=== PATIENT | female | born 1955 | race Caucasian/White ===

== ENCOUNTER 2017-01-26 10:30 | Outpatient (CLI) | payer OTHER ==
--- NOTE | 2017-01-26 12:08 | MMO ---
BILATERAL DIGITAL SCREENING MAMMOGRAMS: HISTORY: A 61-year-old female presents for digital screening mammography. COMPARISON: 05/30/2013, 06/15/2011, 09/26/2009 FINDINGS: This patient's mammogram is interpreted with the assistance of computer aided detection. Scattered areas of fibroglandular density are noted bilaterally. There are multiple stable, circumscr ibed masses in both breasts, which are benign. Minimal scar in the upper aspect of the left breast, which is stable. No direct or indirect evidence of malignancy. IMPRESSION: BI-RADS Category 2: Benign findings. Continue routine screening. POS: MED
== END 2017-01-26 10:31 | disposition home or self-care (01) ==
LOC: MAMMO 10:30
PROVIDERS: ATTEND Internal Medicine
DX: Z12.31 Encounter for screening mammogram for malignant neoplasm of breast (principal)
CPT/HCPCS: 77067; G0202

== ENCOUNTER 2018-04-18 13:18 | Outpatient (CLI) | payer OTHER | END 2018-04-18 13:19 | disposition home or self-care (01) | LOC: BICMAMMO 13:18 | PROVIDERS: ATTEND Internal Medicine | DX: Z12.31 Encounter for screening mammogram for malignant neoplasm of breast (principal); N63.10 Unspecified lump in the right breast, unspecified quadrant; N63.20 Unspecified lump in the left breast, unspecified quadrant | CPT/HCPCS: 77063; 77067 ==

== ENCOUNTER 2018-05-10 10:25 | Outpatient (CLI) | payer OTHER ==
[2018-05-10] MEDS ORDERED: Gadobenate Dimeglumine 529 MG/1 ML (20ML VIAL) ONE (10:26)
--- NOTE | 2018-05-10 13:54 | MRI ---
MRI BRAIN WITH AND WITHOUT IV CONTRAST: Date: 05/10/18 HISTORY: Intractable chronic migraine without aura and without status migrainosus. COMPARISON: 06/24/10. FINDINGS: Nonspecific hyperintense foci in the subcortical white matter and, to a lesser extent, periventricula r white matter, are again seen, without associated enhancement or restricted diffusion. The sagittal Flair images show a focus in the corpus callosum. Correlation for multiple sclerosis would be helpful . No evidence of infarct, hemorrhage, mass, midline shift, or abnormal extra-axial fluid collections ar e noted. The ventricular size is normal and the basilar cisterns are patent. No abnormal postcontrast enhancement is seen. The visualized paranasal sinuses and mastoid air cells are well aerated. IMPRESSION: 1. No evidence of acute intracranial process or mass. 2. Nonspecific white matter changes without active demyelination. POS: OFF
== END 2018-05-10 10:26 | disposition home or self-care (01) ==
LOC: BICMRI 10:25
DX: G43.719 Chronic migraine without aura, intractable, without status migrainosus (principal); R42 Dizziness and giddiness; R26.89 Other abnormalities of gait and mobility; R90.89 Other abnormal findings on diagnostic imaging of central nervous system
CPT/HCPCS: 70553; 82565; A9577

== ENCOUNTER 2018-06-19 06:45 | Emergency (ER) | payer OTHER ==
[2018-06-19 07:28] LABS: #Lymphocytes 0.7 thou/uL (1.20-3.40); #Monocytes 0.5 thou/uL (0.11-0.59); #Neutrophils 4.2 thou/uL (1.40-6.50); %Basophils 0.3 % (0.0-1.0); %Eosinophils 0.1 % (0.0-10.0); %Lymphocytes 12.5 % (21.0-51.0); %Monocytes 9.4 % (0.0-10.0); %Neutrophils 77.8 % (42.0-75.0); Hemoglobin 13.7 g/dL (12.0-16.0); Mean Corpuscular Hemoglobin 28.5 pg (27.0-31.0); Mean Corpuscular Volume 86.3 fL (78.0-98.0); Mean Platelet Volume 8.6 fL (7.4-10.4); Platelet Count 161 thou/uL (130-400); RBC Distribution Width 13.1 % (11.5-14.5); Red Blood Cell (RBC) Count 4.81 mill/uL (4.20-5.40); White Blood Cell (WBC) Count 5.4 thou/uL (4.8-10.8)
[2018-06-19 07:41] LABS: ALT (SGPT) 25 U/L (8-55); AST (SGOT) 29 U/L (5-34); Alkaline Phosphatase 111 U/L (40-150); Anion Gap 15 mmol/L (10-20); BUN (Urea Nitrogen) 19 mg/dL (9.8-20.1); Bilirubin, Total 0.4 mg/dL (0.2-1.2); Calc. Creatinine Clearance 0 mL/min (70-130); Calcium 9.2 mg/dL (7.8-10.44); Carbon Dioxide 24 mmol/L (23-31); Chloride 105 mmol/L (98-107); Estimated GFR-MDRD 49; Globulin 2.9 g/dL (2.4-3.5); Glucose 113 mg/dL (80-115); Lipase 24 U/L (8-78); Protein, Total 6.9 g/dL (6.0-8.3); Sodium 141 mmol/L (136-145)
[2018-06-19] MEDS ORDERED: Ondansetron PF 4 MG/2 ML Vial ONE (08:11)
--- NOTE | 2018-06-19 08:59 | CT ---
CT ABDOMEN AND PELVIS WITH IV CONTRAST: Date: 06/19/18 HISTORY: 62-year-old female with nausea, vomiting, and abdominal pain. COMPARISON: 12/08/12. FINDINGS: There is patchy consolidation in the left lower lobe. The liver, spleen, pancreas, adrenal glands, and left kidney are normal. There is a tiny, nonobstructing calculus in the right kidney. No free air, free fluid, or lymphadenopathy seen in the abdomen or pelvis. There is no aneurysmal dil atation of the abdominal aorta. The patient is post hysterectomy. The small bowel loops are not abnor emiliano dilated. There are mild degenerative changes in the spine. IMPRESSION: 1. Left basilar patchy lung consolidation, suspicious for pneumonia. 2. Tiny, nonobstructing right renal calculus. POS: TPC
[2018-06-19] MEDS ORDERED: ISOVUE-370 76%-LOCM 1 ML ONE (09:37)
[2018-06-19 10:13] LABS: Bilirubin Negative (Negative); Blood, Urine Trace (Negative); Clarity CLEAR (Clear); Glucose, Urine (Dipstick) Negative (Negative); Leukocyte Negative (Negative); Nitrite Negative (Negative); Protein, Urine (Dipstick) Negative (Neg-Trace); Urobilinogen 0.2 mg/dL (0.2-1.0); pH, Urine 5.5 (5.0-9.0)
[2018-06-19 10:16] LABS: Bacteria/HPF None Seen HPF (None Seen); Pathc Cast-AUWi Flag 2.44 (0-2.49); RBC/HPF 0-3 HPF (0-3); Squamous Epithelial 0-3 HPF (0-3); WBC/HPF 0-3 HPF (0-3)
[2018-06-19 10:20] LABS: Hyaline Casts/LPF 0-3 HYALINE CAST LPF (0-3 Hyaline); Specific Gravity, Urine Greater than 1.060 (1.002-1.036)
== END 2018-06-19 10:44 | disposition home or self-care (01) ==
LOC: ERS 06:45
DX: R11.10 Vomiting, unspecified (principal); R19.7 Diarrhea, unspecified; J18.9 Pneumonia, unspecified organism; E11.9 Type 2 diabetes mellitus without complications; E78.5 Hyperlipidemia, unspecified; I10 Essential (primary) hypertension; F41.9 Anxiety disorder, unspecified; Z87.891 Personal history of nicotine dependence; Z79.899 Other long term (current) drug therapy
CPT/HCPCS: 36415; 74177; 80053; 81003; 81015; 83690; 85025; 93005; 96361; 96374; J2405; Q9966

== ENCOUNTER 2019-04-25 12:15 | Outpatient (CLI) | payer OTHER ==
--- NOTE | 2019-04-25 12:53 | MMO ---
Bilateral MAMMO Bilat Screen [facility]. CLINICAL HISTORY: Patient is 63 years old and is seen for screening. The patient has no family history of breast cancer. The patient has no personal history of cancer. VIEWS: The views performed were: bilateral craniocaudal with tomosynthesis; bilateral mediolateral oblique with tomosynthesis; and right exaggerated craniocaudal. FILMS COMPARED: The present examination has been compared to prior imaging studies performed at [facility] on 05/30/2013, 05/31/2013, 01/26/2017 and 04/18/2018. This study has been interpreted with the assistance of computer-aided detection. MAMMOGRAM FINDINGS: There are scattered fibroglandular densities. Nodularity is stable. There are no suspicious masses, suspicious calcifications, or new areas of architectural distortion. IMPRESSION: THERE IS NO MAMMOGRAPHIC EVIDENCE OF MALIGNANCY. A ROUTINE FOLLOW-UP MAMMOGRAM IN 1 YEAR IS RECOMMENDED. THE RESULTS OF THIS EXAM WERE SENT TO THE PATIENT. ACR BI-RADS Category 2 - Benign finding MAMMOGRAPHY NOTE: 1. A negative mammogram report should not delay a biopsy if a dominant of clinically suspicious mass is present. 2. Approximately 10% to 15% of breast cancers are not detected by mammography. 3. Adenosis and dense breasts may obscure an underlying neoplasm. Reported by: LENIN ROPER MD Electonically Signed: [id number]
== END 2019-04-25 12:16 | disposition home or self-care (01) ==
LOC: BICMAMMO 12:15
PROVIDERS: ATTEND Internal Medicine
DX: Z12.31 Encounter for screening mammogram for malignant neoplasm of breast (principal)
CPT/HCPCS: 77063; 77067

== ENCOUNTER 2019-08-23 12:16 | Outpatient (CLI) | payer OTHER ==
--- NOTE | 2019-08-23 13:39 | MRI ---
MRI RIGHT KNEE: Date: 08/23/2019 PROVIDED CLINICAL HISTORY: Right knee pain. FINDINGS: The anterior cruciate ligament, posterior cruciate ligament, medial collateral ligament, and lateral collateral ligamentous complex demonstrate an intact MR appearance, as does the extensor mechanism. The medial and lateral menisci demonstrate no evidence for tear. No focal articular cartilage defect is apparent. There is articular cartilage signal inhomogeneity an d surface irregularity involving the patella without evidence for full thickness fissure or focal def ect. There is a small knee joint effusion. No focal concerning regional marrow or muscular signal abnormality is apparent. IMPRESSION: 1. Patellar chondrosis. 2. Small knee joint effusion. POS: NAHUM
== END 2019-08-23 12:17 | disposition home or self-care (01) ==
LOC: BICMRI 12:16
PROVIDERS: ATTEND Internal Medicine
DX: M25.561 Pain in right knee (principal); M25.461 Effusion, right knee

== ENCOUNTER 2019-11-01 13:17 | Outpatient (CLI) | payer OTHER ==
--- NOTE | 2019-11-01 14:55 | MRI ---
MRI BRAIN WITH AND WITHOUT CONTRAST: DATE: 11/01/2019 HISTORY: 64-year-old female with frequent falls R 26.6 COMPARISON: 05/10/2018 TECHNIQUE: Multiplanar, multisequence MRI of the brain obtained pre and post IV injection of gadolinium based co ntrast agent. FINDINGS: There is no obstructive hydrocephalus. There is no midline shift or any other evidence of mass effect . There is no extra-axial fluid collection. There is a moderate degree of T2-hyperintensities in the cerebral white matter consistent with chronic ischemic white matter changes due to microvascular atherosclerosis. There are FLAIR and T2 hyperintense signal abnormalities homogeneously symmetrically involving the bilateral caudate nuclei, which is unchanged since 05/10/2018. This finding was also present on an older MRI of 06/24/2010, but appears slightly worse now. Etiology is uncertain. There are patchy signal abnormalities involving the brainstem, especially the jarad. This m ay be part of the chronic ischemic white matter changes, although this is nonspecific. This has not significantly changed since 05/10/2018. There is no abnormal enhancement, mass, recent hemorrhage, or r estricted diffusion. IMPRESSION: 1) moderate chronic ischemic white matter changes. 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 3) no acute findings. No interval change overall since 05/10/2018.
== END 2019-11-01 13:18 | disposition home or self-care (01) ==
LOC: BICMRI 13:17
PROVIDERS: ATTEND Student in an Organized Health Care Education/Training Program
DX: R29.6 Repeated falls (principal); I67.82 Cerebral ischemia; R90.89 Other abnormal findings on diagnostic imaging of central nervous system
CPT/HCPCS: 70553; 82565

== ENCOUNTER 2021-08-21 14:22 | Emergency (ER) | payer BC, OTHER ==
[2021-08-21 14:51] LABS: #Eosinphils 0.2 thou/uL (0.0-0.7); #Lymphocytes 1.5 thou/uL (1.20-3.40); #Monocytes 0.5 thou/uL (0.11-0.59); #Neutrophils 3.2 thou/uL (1.40-6.50); %Basophils 0.6 % (0.0-1.0); %Eosinophils 3.4 % (0.0-10.0); %Lymphocytes 27.2 % (21.0-51.0); %Monocytes 8.5 % (0.0-10.0); %Neutrophils 60.2 % (42.0-75.0); Mean Corpuscular HGB CONC 32.3 g/dL (32.0-36.0); Mean Corpuscular Hemoglobin 29.3 pg (27.0-31.0); Mean Corpuscular Volume 90.7 fL (78.0-98.0); Mean Platelet Volume 8.6 fL (7.4-10.4); Platelet Count 187 thou/uL (130-400); RBC Distribution Width 11.8 % (11.5-14.5); Red Blood Cell (RBC) Count 5.12 mill/uL (4.20-5.40); White Blood Cell (WBC) Count 5.3 thou/uL (4.8-10.8)
[2021-08-21] MEDS ORDERED: Metoclopramide HCl 10 MG/2 ML VIAL ONE (15:00)
[2021-08-21] MEDS ORDERED: Dexamethasone 10 MG/ML VIAL ONE (15:00)
[2021-08-21] MEDS ORDERED: Ketorolac Tromethamine 30 MG/ML VIAL ONE (15:00)
[2021-08-21 15:32] LABS: ALT (SGPT) 29 U/L (8-55); AST (SGOT) 31 U/L (5-34); Albumin 4.5 g/dL (3.4-4.8); Alkaline Phosphatase 87 U/L (40-110); Anion Gap 15 mmol/L (10-20); BUN (Urea Nitrogen) 10 mg/dL (9.8-20.1); Bilirubin, Total 0.5 mg/dL (0.2-1.2); CK (CPK) 57 U/L (29-168); Calc. Creatinine Clearance 0 mL/min (70-130); Calcium 10.1 mg/dL (7.8-10.44); Carbon Dioxide 25 mmol/L (23-31); Chloride 107 mmol/L (98-107); Globulin 3.5 g/dL (2.4-3.5); Glucose 94 mg/dL (80-115); Lipase 40 U/L (8-78); Potassium 4.2 mmol/L (3.5-5.1); Sodium 143 mmol/L (136-145)
== END 2021-08-21 16:28 | disposition home or self-care (01) ==
LOC: ERS 14:22
DX: M79.10 Myalgia, unspecified site (principal); R51.9 Headache, unspecified; Z20.822 Contact with and (suspected) exposure to COVID-19; E11.9 Type 2 diabetes mellitus without complications; E78.5 Hyperlipidemia, unspecified; I10 Essential (primary) hypertension; Z87.891 Personal history of nicotine dependence
CPT/HCPCS: 71045; 80053; 82550; 83690; 84484; 85025; 93005; 96374; 96375; J1100; J1885; J2765; U0003; U0005

== ENCOUNTER 2022-12-15 17:00 | Outpatient (CLI) | payer MEDICARE | END 2022-12-15 17:01 | disposition home or self-care (01) | LOC: SLEEPLAB 17:00 | PROVIDERS: ATTEND Family Medicine | DX: G47.33 Obstructive sleep apnea (adult) (pediatric) (principal); G47.61 Periodic limb movement disorder; G47.00 Insomnia, unspecified; I10 Essential (primary) hypertension; F41.8 Other specified anxiety disorders; R40.0 Somnolence; R51.9 Headache, unspecified; R06.83 Snoring; R35.1 Nocturia | CPT/HCPCS: 95810 ==

== ENCOUNTER 2023-01-05 14:07 | Outpatient (CLI) | payer MEDICARE ==
[2023-01-05 14:58] LABS: Hemoglobin 12.6 g/dL (12.0-15.5); Mean Corpuscular HGB CONC 33.2 g/dL (32.0-36.0); Mean Corpuscular Hemoglobin 28.9 pg (27.0-33.0); Mean Corpuscular Volume 87.2 fl (81.6-98.3); Mean Platelet Volume 10.2 fl (7.4-10.4); Platelet Count 203 10x3/uL (150-450); RBC Distribution Width 13.8 % (11.5-14.5); Red Blood Cell (RBC) Count 4.36 10x6/uL (3.90-5.03); White Blood Cell (WBC) Count 5.4 10x3/uL (3.5-10.5)
[2023-01-05 15:18] LABS: Anion Gap 12 mmol/L (10-20); BUN (Urea Nitrogen) 12 mg/dL (9.8-20.1); Calc. Creatinine Clearance 0 mL/min (70-130); Carbon Dioxide 27 mmol/L (23-31); Chloride 104 mmol/L (98-107); Estimated GFR 81; Glucose 133 mg/dL (80-115); Potassium 3.3 mmol/L (3.5-5.1); Sodium 140 mmol/L (136-145)
== END 2023-01-05 14:08 | disposition home or self-care (01) ==
LOC: LABBT 14:07
PROVIDERS: ATTEND Specialist
DX: Z01.818 Encounter for other preprocedural examination (principal); J34.2 Deviated nasal septum; J34.3 Hypertrophy of nasal turbinates; J32.0 Chronic maxillary sinusitis
CPT/HCPCS: 80048; 85027; 93005; 93010

== ENCOUNTER 2023-01-06 09:40 | Day surgery (SDC) | payer MEDICARE ==
[2023-01-05 14:33] VITALS: BMI 26.9
[2023-01-06] MEDS ORDERED: Oxymetazoline HCl 0.05% (30 ML BOT) ONE ×2 (10:50→11:29)
[2023-01-06] MEDS ORDERED: Lidocaine 1% (PF) 30 ML VIAL ONE (11:30)
[2023-01-06] MEDS ORDERED: fentaNYL PF 100 MCG/2 ML SYRINGE ONE (11:40)
[2023-01-06] MEDS ORDERED: Glycopyrrolate 0.2 MG/ML 5 ML SYRINGE ONE (11:46)
[2023-01-06] MEDS ORDERED: Lidocaine 1% PF 5 ML VIAL ONE (11:46)
[2023-01-06] MEDS ORDERED: Dexamethasone 20 MG/5 ML VIAL ONE (11:46)
[2023-01-06] MEDS ORDERED: NEOSTIGMINE 3 MG/3 ML SYR 3 MG/3 ML SYRINGE ONE (11:46)
[2023-01-06] MEDS ORDERED: Rocuronium Bromide 10 MG/ML (10ML VIAL) ONE (11:46)
[2023-01-06] MEDS ORDERED: Ondansetron PF 4 MG/2 ML Vial ONE (11:46)
[2023-01-06] MEDS ORDERED: PROPOFOL 200 MG/20 ML VIAL ONE (11:46)
[2023-01-06] MEDS ORDERED: ePHEDrine Sulfate 50 MG/10 ML VIAL ONE (11:46)
== END 2023-01-06 14:25 | disposition home or self-care (01) ==
LOC: SDC 09:40
PROVIDERS: ATTEND Specialist
PROC: 09TL8ZZ Resection of Nasal Turbinate, Via Natural or Artificial Opening Endoscopic (ICD-10-PCS; principal; 2023-01-06)
PROC: 099V8ZZ Drainage of Left Ethmoid Sinus, Via Natural or Artificial Opening Endoscopic (ICD-10-PCS; 2023-01-06)
PROC: 099W8ZZ Drainage of Right Sphenoid Sinus, Via Natural or Artificial Opening Endoscopic (ICD-10-PCS; 2023-01-06)
PROC: 099X8ZZ Drainage of Left Sphenoid Sinus, Via Natural or Artificial Opening Endoscopic (ICD-10-PCS; 2023-01-06)
PROC: 099Q8ZZ Drainage of Right Maxillary Sinus, Via Natural or Artificial Opening Endoscopic (ICD-10-PCS; 2023-01-06)
PROC: 099R8ZZ Drainage of Left Maxillary Sinus, Via Natural or Artificial Opening Endoscopic (ICD-10-PCS; 2023-01-06)
PROC: 099S8ZZ Drainage of Right Frontal Sinus, Via Natural or Artificial Opening Endoscopic (ICD-10-PCS; 2023-01-06)
PROC: 099T8ZZ Drainage of Left Frontal Sinus, Via Natural or Artificial Opening Endoscopic (ICD-10-PCS; 2023-01-06)
PROC: 099U8ZZ Drainage of Right Ethmoid Sinus, Via Natural or Artificial Opening Endoscopic (ICD-10-PCS; 2023-01-06)
DX: J34.2 Deviated nasal septum (principal); J34.3 Hypertrophy of nasal turbinates; J32.0 Chronic maxillary sinusitis; E78.00 Pure hypercholesterolemia, unspecified; I10 Essential (primary) hypertension; K21.9 Gastro-esophageal reflux disease without esophagitis; F32.A Depression, unspecified; F41.9 Anxiety disorder, unspecified; E11.9 Type 2 diabetes mellitus without complications; Z88.5 Allergy status to narcotic agent; Z90.710 Acquired absence of both cervix and uterus; Z98.890 Other specified postprocedural states; Z87.59 Personal history of other complications of pregnancy, childbirth and the puerperium; Z79.899 Other long term (current) drug therapy
CPT/HCPCS: J1100; J2001; J2405; J2704

== ENCOUNTER 2023-04-06 09:44 | Outpatient (CLI) | payer MEDICARE, OTHER | END 2023-04-06 09:45 | disposition home or self-care (01) | LOC: BICMAMMO 09:44 | PROVIDERS: ATTEND Family Medicine | DX: Z12.31 Encounter for screening mammogram for malignant neoplasm of breast (principal); M81.0 Age-related osteoporosis without current pathological fracture; M85.851 Other specified disorders of bone density and structure, right thigh; M85.852 Other specified disorders of bone density and structure, left thigh; Z91.89 Other specified personal risk factors, not elsewhere classified; Z78.0 Asymptomatic menopausal state | CPT/HCPCS: 77063; 77067; 77080 ==

== ENCOUNTER 2023-08-11 12:38 | Outpatient (CLI) | payer MEDICARE, OTHER ==
[~2023-08-11 12:38] MED LIST: Iopamidol 370 76% 100 ML VIAL ONE
== END 2023-08-11 12:39 | disposition home or self-care (01) ==
LOC: BICCT 12:38
PROVIDERS: ATTEND Physician Assistant Medical
DX: K21.9 Gastro-esophageal reflux disease without esophagitis (principal); R10.13 Epigastric pain; R11.0 Nausea; R05.3 Chronic cough; K59.09 Other constipation; J98.6 Disorders of diaphragm; J98.4 Other disorders of lung; Z86.010 Personal history of colon polyps
CPT/HCPCS: 74177; 82565; Q9967

== ENCOUNTER 2023-08-18 08:44 | Emergency (ER) | payer MEDICARE, OTHER ==
[2023-08-18 09:17] LABS: #Basophils 0.03 10x3/uL (0.0-0.2); %Basophils 0.5 % (0.0-1.0); %Eosinophils 1.9 % (0.0-10.0); %Lymphocytes 40.7 % (21.0-51.0); %Monocytes 7.6 % (0.0-10.0); %Neutrophils 48.8 % (42.0-75.0); Hematocrit 39.2 % (36.0-47.0); Hemoglobin 13.6 g/dL (12.0-16.0); Mean Corpuscular HGB CONC 34.7 g/dL (32.0-36.0); Mean Corpuscular Hemoglobin 30.6 pg (27.0-31.0); Mean Corpuscular Volume 88.1 fL (78.0-98.0); Mean Platelet Volume 10.5 fL (7.4-10.4); Platelet Count 175 10x3/uL (130-400); RBC Distribution Width 12.5 % (11.5-14.5); Red Blood Cell (RBC) Count 4.45 mill/uL (4.20-5.40)
[2023-08-18 09:33] LABS: ALT (SGPT) 27 U/L (8-55); AST (SGOT) 23 U/L (5-34); Albumin 3.8 g/dL (3.4-4.8); Alkaline Phosphatase 81 U/L (40-110); Anion Gap 15 mmol/L (10-20); BUN (Urea Nitrogen) 20 mg/dL (9.8-20.1); Bilirubin, Total 0.5 mg/dL (0.2-1.2); Calc. Creatinine Clearance 0 mL/min (70-130); Calcium 9.4 mg/dL (7.8-10.44); Carbon Dioxide 25 mmol/L (23-31); Chloride 106 mmol/L (98-107); Estimated GFR 77; Globulin 3.3 g/dL (2.4-3.5); Glucose 155 mg/dL (80-115); Lipase 40 U/L (8-78); Potassium 3.8 mmol/L (3.5-5.1); Protein, Total 7.1 g/dL (5.8-8.1); Sodium 142 mmol/L (136-145)
[2023-08-18 09:37] LABS: Troponin I Less than 0.010 ng/mL (< 0.028)
[2023-08-18] MEDS ORDERED: Meclizine HCl 25 MG TAB ONE (10:05)
== END 2023-08-18 10:49 | disposition home or self-care (01) ==
LOC: ERS 08:44
DX: R42 Dizziness and giddiness (principal); Z55.6 Problems related to health literacy; E11.9 Type 2 diabetes mellitus without complications; K21.9 Gastro-esophageal reflux disease without esophagitis; I10 Essential (primary) hypertension; Z79.899 Other long term (current) drug therapy; Z87.891 Personal history of nicotine dependence
CPT/HCPCS: 36416; 71045; 80053; 83690; 84484; 85025; 93005

== ENCOUNTER 2023-09-15 13:01 | Outpatient (CLI) | payer MEDICARE, OTHER | END 2023-09-15 13:02 | disposition home or self-care (01) | LOC: RAD 13:01 | PROVIDERS: ATTEND Otolaryngology Otolaryngic Allergy | DX: R04.2 Hemoptysis (principal) | CPT/HCPCS: 71046 ==

== ENCOUNTER 2024-12-25 07:34 | Outpatient (CLI) | payer MEDICARE | END 2024-12-25 07:35 | disposition home or self-care (01) | LOC: NM 07:34 | PROVIDERS: ATTEND Family Medicine | DX: K31.84 Gastroparesis (principal) | CPT/HCPCS: 78264; A9541 ==